=== PATIENT | male | born 1985 | race Caucasian/White ===

== ENCOUNTER 2021-06-11 08:42 | Emergency (ER) | payer OTHER ==
[~2021-06-11] VITALS: Ht 167.6 cm; Wt 84.4 kg
[2021-06-11] MEDS ORDERED: ZITHROMAX500 MG PO (12:30)
[2021-06-11] MEDS ORDERED: TUSSI PRES-B L480 ML PO (12:30)
== END 2021-06-11 12:42 | disposition home or self-care (01) ==
LOC: ER 08:42
DX: B34.9 Viral infection, unspecified (principal); Z03.818 Encounter for observation for suspected exposure to other biological agents ruled out

== ENCOUNTER 2021-08-30 07:15 | Emergency (ER) | payer OTHER ==
[~2021-08-30] VITALS: Ht 175.3 cm; Wt 81.6 kg
[~2021-08-30 07:15] MED LIST: TUSSI PRES-B L480 ML PO; ZITHROMAX500 MG PO
[2021-08-30] MEDS ORDERED: ZITHROMAX500 MG PO (11:33)
== END 2021-08-30 12:02 | disposition home or self-care (01) ==
LOC: ER 07:15
DX: U07.1 COVID-19 (principal); B96.0 Mycoplasma pneumoniae [M. pneumoniae] as the cause of diseases classified elsewhere